=== PATIENT | male | born 1960 | race Caucasian/White ===

== ENCOUNTER 2018-07-18 16:32 | Emergency (ER) | payer SELFPAY ==
[2018-07-18 17:53] LABS: Bilirubin Negative (Negative); Blood, Urine Trace (Negative); Clarity CLEAR (Clear); Glucose, Urine (Dipstick) Negative (Negative); Leukocyte Negative (Negative); Nitrite Negative (Negative); Protein, Urine (Dipstick) Negative (Neg-Trace); Specific Gravity, Urine 1.017 (1.002-1.036)
[2018-07-18 17:55] LABS: Bacteria/HPF None Seen HPF (None Seen); Hyaline Casts/LPF 0-3 HYALINE CAST LPF (0-3 Hyaline); Squamous Epithelial None Seen HPF (0-3); WBC/HPF 0-3 HPF (0-3)
[2018-07-18 18:18] LABS: #Eosinphils 0.1 thou/uL (0.0-0.7); #Monocytes 1.1 thou/uL (0.11-0.59); #Neutrophils 6.7 thou/uL (1.40-6.50); %Eosinophils 0.6 % (0.0-10.0); %Lymphocytes 11.5 % (21.0-51.0); %Monocytes 12.6 % (0.0-10.0); %Neutrophils 75.2 % (42.0-75.0); Hemoglobin 15.4 g/dL (14.0-18.0); Mean Corpuscular HGB CONC 32.6 g/dL (32.0-36.0); Mean Corpuscular Hemoglobin 30.8 pg (27.0-31.0); Mean Corpuscular Volume 94.7 fL (78.0-98.0); Mean Platelet Volume 6.7 fL (7.4-10.4); Platelet Count 273 thou/uL (130-400); RBC Distribution Width 11.5 % (11.5-14.5); Red Blood Cell (RBC) Count 4.99 mill/uL (4.70-6.10); White Blood Cell (WBC) Count 8.9 thou/uL (4.8-10.8)
[2018-07-18 18:45] LABS: ALT (SGPT) 14 U/L (8-55); AST (SGOT) 18 U/L (5-34); Alkaline Phosphatase 83 U/L (40-150); Anion Gap 10 mmol/L (10-20); BUN (Urea Nitrogen) 14 mg/dL (8.4-25.7); Bilirubin, Total 0.6 mg/dL (0.2-1.2); Calc. Creatinine Clearance 0 mL/min (70-130); Calcium 8.6 mg/dL (7.8-10.44); Carbon Dioxide 28 mmol/L (22-29); Chloride 106 mmol/L (98-107); Estimated GFR-MDRD 86; Glucose 90 mg/dL (70-105); Lipase 10 U/L (8-78); Potassium 3.4 mmol/L (3.5-5.1); Sodium 141 mmol/L (136-145)
[2018-07-18] MEDS ORDERED: Ondansetron PF 4 MG/2 ML Vial ONE (19:37)
[2018-07-18] MEDS ORDERED: Acetaminophen 500 MG TAB ONE (19:37)
[2018-07-18] MEDS ORDERED: diphenhydrAMINE 50 MG/ML VIAL ONE (19:37)
[2018-07-18] MEDS ORDERED: Metoclopramide HCl 10 MG/2 ML VIAL ONE (19:37)
== END 2018-07-18 20:49 | disposition home or self-care (01) ==
LOC: ERS 16:32
DX: R11.2 Nausea with vomiting, unspecified (principal); R19.7 Diarrhea, unspecified; R51 Headache; E27.40 Unspecified adrenocortical insufficiency; I10 Essential (primary) hypertension; Z79.899 Other long term (current) drug therapy
CPT/HCPCS: 36415; 80053; 81003; 81015; 82533; 83690; 84484; 85025; 93005; 96365; 96375; J1200; J2405; J2765

== ENCOUNTER 2020-09-14 11:02 | Observation (INO) | payer SELFPAY ==
[2020-09-14] MEDS ORDERED: Proparacaine 0.5% Opth 15 ML BOT ONE (12:32)
--- NOTE | 2020-09-14 13:06 | RAD ---
Exam: Chest one view HISTORY:Facial droop. Numbness. Comparison: 09/03/2015 FINDINGS: Cardiac silhouette: Normal Aorta: Unremarkable Pulmonary vessels: Normal Costophrenic angles: Clear LUNGS: No masses or consolidation. Pneumothorax: None Osseous abnormalities: None IMPRESSION: No acute cardiopulmonary process.
--- NOTE | 2020-09-14 13:12 | CT ---
CT head without IV contrast: Multiple axial tomograms obtained through the head without IV enhancement. INDICATIONS: Facial droop COMPARISON: 09/03/2015 FINDINGS: Ventricles have normal size and position. Evidence of old lacunar infarct in the right thalamus, new since prior exam. No evidence of acute cortical infarct, mass, or hemorrhage. Mild chronic ischemic white matter change. Opacification the visualized left maxillary sinus with thickened sinus wall suggesting chronic sinus disease. Bony calvarium appears unremarkable. IMPRESSION: 1. Old lacunar infarct right thalamus. Mild chronic ischemic white matter change. 2. Chronic mucosal disease left maxillary sinus
[2020-09-14 13:19] LABS: #Monocytes 0.8 thou/uL (0.11-0.59); #Neutrophils 5.9 thou/uL (1.40-6.50); %Basophils 0.3 % (0.0-1.0); %Eosinophils 0.4 % (0.0-10.0); %Lymphocytes 23.1 % (21.0-51.0); %Monocytes 9.4 % (0.0-10.0); %Neutrophils 66.8 % (42.0-75.0); Hemoglobin 16.3 g/dL (14.0-18.0); Mean Corpuscular HGB CONC 32.8 g/dL (32.0-36.0); Mean Corpuscular Hemoglobin 31.4 pg (27.0-31.0); Mean Corpuscular Volume 95.7 fL (78.0-98.0); Mean Platelet Volume 6.9 fL (7.4-10.4); Platelet Count 308 thou/uL (130-400); RBC Distribution Width 11.6 % (11.5-14.5); White Blood Cell (WBC) Count 8.8 thou/uL (4.8-10.8)
[2020-09-14 13:27] LABS: ALT (SGPT) 17 U/L (8-55); AST (SGOT) 14 U/L (5-34); Albumin 4.6 g/dL (3.5-5.0); Alkaline Phosphatase 98 U/L (40-110); Anion Gap 14 mmol/L (10-20); BUN (Urea Nitrogen) 13 mg/dL (8.4-25.7); Bilirubin, Total 0.5 mg/dL (0.2-1.2); CK (CPK) 57 U/L (30-200); Calc. Creatinine Clearance 0 mL/min (70-130); Calcium 9.9 mg/dL (7.8-10.44); Carbon Dioxide 27 mmol/L (22-29); Chloride 105 mmol/L (98-107); Globulin 3.3 g/dL (2.4-3.5); Glucose 136 mg/dL (70-105); Magnesium 2.1 mg/dL (1.6-2.6); Potassium 4.8 mmol/L (3.5-5.1); Protein, Total 7.9 g/dL (6.0-8.3); Sodium 141 mmol/L (136-145)
[2020-09-14] MEDS ORDERED: Acetaminophen 500 MG TAB ONE (13:43)
--- NOTE | 2020-09-14 14:18 | PDOC.HHP ---
Hospitalist HPI Facial droop History of Present Illness: Ms. Alexander is a 60M with a PMHx of HTN, HLD, Middletown's disease, diverticulosis who presents to the ER sent in from customs compliance specialist Dr. Pan's office for facial droop. Patient reports that over the past six months he has noticed intermittent L sided eye droop and swelling/pain surrounding his eye for the past 6 months which has been progressive. Patient has noticed a clouding of his vision on the left side which would come and go, but now is persisting over the past few weeks mostly in the lower nasal quadrant of vision. Patient does note a history of increased eye swelling which he had years ago, but does not recall ever having glaucoma. He was put on eye drops for this for a short time years ago. He does note intermittent palpitations, which he had previously attributed to his Middletown's disease. He denies any weakness or numbness of the extremities. He reports L sided hearing loss and tinnitus which he noticed after an upper respiratory infection and fever months ago. He said he has avoided doctors in the past few months since he has no health insurance, although has been compliant with his Middletown's disease and following with his technical agronomist closely. In the ER initial vital signs 147/96, 71, 17, 98.2, 90% on room air. CT brain showed an old lacunar infarct in the right thalamus but no acute changes. BUN/CR 13/1.01, sodium 141, potassium 4.8. WBC 8.8, H/H 16.3/49.7, platelets regular. Glucose 136. TSH within normal limits cortisol within normal limits, magnesium 2.1. IOP in ER was measured 27 in the R eye and 24 in the L eye. Allergies/Adverse Reactions: Allergy/AdvReac Type Severity Reaction Status Date / Time No Known Drug Allergies Allergy Verified 09/03/15 00:33 Home Medications: Medication Instructions Recorded Confirmed Type traMADol HCl [Tramadol HCl] 2 tab PO BID PRN 09/03/15 09/15/20 History Aspirin [Ecotrin Low Strength] 81 mg PO DAILY 30 Days #30 tab 09/15/20 Rx Atorvastatin Calcium [Lipitor] 40 mg PO HS 30 Days #30 tab 09/15/20 Rx Brimonidine Tartrate/Timolol 5 ml OP QAM 30 Days #1 drops 09/15/20 Rx [Combigan 0.2%-0.5% Eye Drops] Fludrocortisone Acetate [Florinef] 0.1 mg PO DAILY tab 09/15/20 Rx Latanoprost [Xalatan 0.005% Ophth 1 drop EA EYE HS 30 Days #1 bot 09/15/20 Rx Soln] Metoprolol Tartrate [Lopressor] 25 mg PO BID tab 09/15/20 Rx Ondansetron [Zofran ODT] 4 mg PO PRN PRN tab 09/15/20 Rx predniSONE 5 mg PO HS tab 09/15/20 Rx predniSONE 10 mg PO DAILY tab 09/15/20 Rx Past History: PMHx: Middletown's disease, HTN, diverticulosis PSHx:L hand surgery, Knee surgery Family history: No pertinent family history Social history: Denies tobacco, eoth, drug use Hospitalist HPI ROS Constitutional: denies: fever, chills, sweats, weakness, malaise, other Eyes: reports: pain, vision change. denies: conjunctivae inflammation, eyelid inflammation, redness, other ENT: denies: ear pain, ear discharge, nose pain, nose discharge, nose congestion, mouth pain, mouth swelling, throat pain, throat swelling, other Respiratory: denies: cough, dry, shortness of breath, hemoptysis, SOB with excertion, pleuritic pain, sputum, wheezing, other Cardiovascular: reports: palpitations. denies: chest pain, orthopnea, paroxysmal noc. dyspnea, edema, light headedness, other Gastrointestinal: denies: nausea, vomiting, abdominal pain, diarrhea, constipation, melena, hematochezia, other Genitourinary: denies: dysuria, frequency, incontinence, hematuria, retention, other Musculoskeletal: denies: neck pain, shoulder pain, arm pain, back pain, hand pain, leg pain, foot pain, other Skin: denies: rash, lesions, kaitlynn, bruising, other Neurological: denies: weakness, numbness, incoordination, change in speech, con fusion, seizures, other Hospitalist Exam General Appearance: NAD, awake alert Eye: PERRL, anicteric sclera Eye - other findings: L eyelid ptosis, no conjunctivitis, EOM intact ENT: normocephalic atraumatic, no oropharyngeal lesions, moist mucosa Neck: supple, symmetric, no JVD, no thyromegaly, no lymphadenopathy, no carotid bruit Heart: RRR, no murmur, no gallops, no rubs, normal peripheral pulses Respiratory: CTAB, no wheezes, no rales, no ronchi, normal chest expansion, no tachypnea, normal percussion Gastrointestinal: soft, non-tender, non-distended, normal bowel sounds, no p alpable masses, no hepatomegaly, no splenomegaly, no bruit Extremities: no cyanosis, no clubbing, 1+ LE edema Extremities - other findings: L>R chronic 2/2 Knee surgery Skin: normal turgor, no lesions, no rashes Neurological: cranial nerve grossly intact, normal sensation to touch, no weakness, no focal deficits, no new deficit Neurological - other findings: L eyelid ptosis Musculoskeletal: normal tone, normal strength, no muscle wasting Psychiatric: normal affect, normal behavior, A&O x 3 Hospitalist Results Result Diagrams: 09/15/20 06:44 09/15/20 06:44 Lab results: Laboratory Last Values WBC 8.8 thou/uL (4.8-10.8) 09/14/20 12:39 RBC 5.20 mill/uL (4.70-6.10) 09/14/20 12:39 Hgb 16.3 g/dL (14.0-18.0) 09/14/20 12:39 Hct 49.7 % (42.0-52.0) 09/14/20 12:39 MCV 95.7 fL (78.0-98.0) 09/14/20 12:39 MCH 31.4 pg (27.0-31.0) H 09/14/20 12:39 MCHC 32.8 g/dL (32.0-36.0) 09/14/20 12:39 RDW 11.6 % (11.5-14.5) 09/14/20 12:39 Plt Count 308 thou/uL (130-400) 09/14/20 12:39 MPV 6.9 fL (7.4-10.4) L 09/14/20 12:39 Neutrophils % 66.8 % (42.0-75.0) 09/14/20 12:39 Lymphocytes % 23.1 % (21.0-51.0) 09/14/20 12:39 Monocytes % 9.4 % (0.0-10.0) 09/14/20 12:39 Eosinophils % 0.4 % (0.0-10.0) 09/14/20 12:39 Basophils % 0.3 % (0.0-1.0) 09/14/20 12:39 Neutrophils # 5.9 thou/uL (1.40-6.50) 09/14/20 12:39 Lymphocytes # 2.0 thou/uL (1.20-3.40) 09/14/20 12:39 Monocytes # 0.8 thou/uL (0.11-0.59) H 09/14/20 12:39 Eosinophils # 0.0 thou/uL (0.0-0.7) 09/14/20 12:39 Basophils # 0.0 thou/uL (0.0-0.2) 09/14/20 12:39 Sodium 141 mmol/L (136-145) 09/14/20 12:39 Potassium 4.8 mmol/L (3.5-5.1) 09/14/20 12:39 Chloride 105 mmol/L (98-107) 09/14/20 12:39 Carbon Dioxide 27 mmol/L (22-29) 09/14/20 12:39 Anion Gap 14 mmol/L (10-20) 09/14/20 12:39 BUN 13 mg/dL (8.4-25.7) 09/14/20 12:39 Creatinine 1.01 mg/dL (0.7-1.3) 09/14/20 12:39 Estimated GFR (MDRD) 76 09/14/20 12:39 Glucose 136 mg/dL (70-105) H 09/14/20 12:39 Calcium 9.9 mg/dL (7.8-10.44) 09/14/20 12:39 Magnesium 2.1 mg/dL (1.6-2.6) 09/14/20 12:39 Total Bilirubin 0.5 mg/dL (0.2-1.2) 09/14/20 12:39 AST 14 U/L (5-34) 09/14/20 12:39 ALT 17 U/L (8-55) 09/14/20 12:39 Alkaline Phosphatase 98 U/L (40-110) 09/14/20 12:39 Creatine Kinase 57 U/L (30-200) 09/14/20 12:39 Troponin I 0.013 ng/mL (< 0.028) 09/14/20 12:39 Serum Total Protein 7.9 g/dL (6.0-8.3) 09/14/20 12:39 Albumin 4.6 g/dL (3.5-5.0) 09/14/20 12:39 Globulin 3.3 g/dL (2.4-3.5) 09/14/20 12:39 Albumin/Globulin Ratio 1.4 g/dL (1.2-2.2) 09/14/20 12:39 TSH 3rd Generation 0.3520 uIU/mL (0.35-4.94) 09/14/20 12:39 Cortisol 1.20 ug/dL (See Ranges) 09/14/20 12:39 Hospitalist H&P A/P Plan: TIA with Vision Loss 60M with hx of hal's disease presents with acute on chronic vision loss. Pt describes intermittent black clouding of vision over the L eye in the lower na scooby quadrant which began 6 months ago. He noted an associated headache, numbness, and swelling surrounding his eye and extending to his gnosticist. The vision loss has been gradual and now is persistent over the past few weeks. Also noted hearing loss on the L side. CT brain showed an old lacunar infarct in the R thalamus with no acute changes. Question if this is untreated Temporal Arteritis vs amaurosis fugax. Will trial dose of IV solumedrol and check CRP, ESR. Pt also reports a history of elevated IOP years ago. Denies any history of glaucoma. IOP 27 on the R, very mildly elevated. EOM intact. No conjunctival injection. Will consult Dr. Denny of opthalmology for further recommendations. Plan -MRI brain, Carotid US -TSH, Mg, Telemetry monitoring -ESR, CRP, solumedrol if elevated -Neurology consult, reccs appreciated -Opthalomogy consult, reccs appreciated Eyelid droop Pt with intermittent L sided eyelid droop associated with vision loss and symptoms as above. Symptoms intermittent and progressive over the past few months. CT brain showed old lacunar infarct of the R thalamus. No other focal deficits noted on exam. Pt does not note a time association with his eyelid droop depending on time of day. No family history of myasthenia gravis. Will pursue CVA workup. Plan -MRI brain -q4hr neuro checks -Echocardiogram -Carotid US -ASA, statin -Neurology consult Palpitations Pt reports history of intermittent palpitations. He previously associated these with his hal's disease. Reports they will occur every few weeks and he feels that his heart is beating out of his chest when he stands up from sitting, only lasts for minutes at a time. No chest pain associated with these events. EKG showed NSR with no ischemic changes. May be component of POTS/dysautonomia, however will place on telemetry monitoring to rule out a-fib as a cause of his stroke-like symptoms. Plan -Telemetry monitoring [place]'s Disease Hx of Hal's disease diagnosed in 2016. On daily prednisone 10 mg BID and fludricotrisone. Will continue and add methypredisone as above for suspected temporal arteritis. Plan -Continue home prednisone, fludricortisone -Cortisol, TSH wnl HTN Hold home metoprolol in setting of permissive HTN HLD On fish oil at home. Will start atorvastatin for suspected TIA. DVT prophylaxis- lovenox FULL CODE Case discussed with attending physician, Dr. Anguiano
[2020-09-14] MEDS ORDERED: hydrALAZINE 20 MG/ML VIAL SLOW IVP PRN (15:38)
[2020-09-14] MEDS ORDERED: Acetaminophen 650 MG Suppository PR PRN (15:38)
[2020-09-14 17:15] LABS: Syphilis Antibody Nonreactive (Nonreactive); Syphilis Antibody Index 0.13 S/CO (<1.00 Non-Reactive)
--- NOTE | 2020-09-14 17:54 | CON ---
NEUROLOGY CONSULTATION DATE OF CONSULTATION: 09/14/2020 REASON FOR CONSULTATION: facial droop, rule out CVA. HISTORY OF PRESENT ILLNESS: Mr. Alexander is a 60-year-old male with medical history significant for hypertension, hyperlipidemia, Kleberg disease, diverticulosis, presented to the emergency room after being sent by police inspector, Dr. Pan because of left facial droop. The patient over the past 6 months he has noticed intermittent left ptosis and swelling and pain around the left eye, which has been progressive. He also noticed his vision is blurred and it feels like a cloud in front of his left eye, which comes and goes since last 6 months, but it has been persistent for the last one week, mostly in the left lower quadrant. The patient also has history of eye swelling and uses the drops previously for glaucoma. The patient does admit of having a left-sided headache and left hearing loss and tinnitus after an upper respiratory tract infection and fever a month ago. The patient used to avoid doctors because of issues with health insurance. He also had dizziness followed by skip load driver and is on prednisone. In the emergency room, the initial vital signs include blood pressure of 127/96, pulse 88, respiratory rate 17. Head CT was done, which showed old lacunar infarct in the right thalamus, but no acute changes. The patient denies nausea, vomiting, chest pain, abdominal pain, recent illness, recent exposure to COVID-19, focal weakness, focal paresthesias, double vision, dizziness, vertigo, loss of consciousness, or abnormal involuntary movement associated with the episode. ALLERGIES: NO KNOWN DRUG ALLERGIES. MEDICATIONS: 1. Tramadol. 2. Metoprolol tartrate. 3. Prednisone. PAST MEDICAL HISTORY: Hal disease, hypertension, diverticulosis. PAST SURGICAL HISTORY: Left hand surgery, knee surgery. FAMILY HISTORY: No pertinent family history. SOCIAL HISTORY: The patient is . Denies tobacco, alcohol, illegal drug abuse. REVIEW OF SYSTEMS: All systems reviewed and were negative except the pertinent positives and negatives mentioned in the HPI. Allergies/Adverse Reactions: Allergy/AdvReac Type Severity Reaction Status Date / Time No Known Drug Allergies Allergy Verified 09/03/15 00:33 Home Medications: Medication Instructions Recorded Confirmed Type traMADol HCl [Tramadol HCl] 1 - 2 tab PO BID PRN 09/03/15 09/03/15 History Metoprolol Tartrate 0.5 tab PO BID 09/14/20 09/14/20 History predniSONE 10 mg PO BID 09/14/20 09/14/20 History PHYSICAL EXAMINATION: Blood pressure of 127/96, pulse 88, respiratory rate 17 General Appearance: NAD, awake alert Eye: PERRL, anicteric sclera Eye - other findings: L eyelid ptosis, no conjunctivitis, EOM intact ENT: normocephalic atraumatic, no oropharyngeal lesions, moist mucosa Neck: supple, symmetric, no JVD, no thyromegaly, no lymphadenopathy, no carotid bruit Heart: RRR, no murmur, no gallops, no rubs, normal peripheral pulses Respiratory: CTAB, no wheezes, no rales, no ronchi, normal chest expansion, no tachypnea, normal percussion Gastrointestinal: soft, non-tender, non-distended, normal bowel sounds, no palpable masses, no hepatomegaly, no splenomegaly, no bruit Extremities: no cyanosis, no clubbing, 1+ LE edema Skin: normal turgor, no lesions, no rashes Neurological: Mental status: The patient is alert and oriented to person, place, and time. Speech is clear. Cranial nerves 2 through 12 intact. Motor, muscle tone and bulk are normal. Strength 5/5 bilaterally. Sensory intact. Cerebellar, finger-nose testing intact. Gait deferred due to patient's safety reason. The only pertinent positive in neurological exam is left eyelid ptosis. DATA REVIEWED: I reviewed the CT scan which was negative for acute intracranial pathology. He does have hyperglycemia of 136. Laboratory Last Values WBC 8.8 thou/uL (4.8-10.8) 09/14/20 12:39 RBC 5.20 mill/uL (4.70-6.10) 09/14/20 12:39 Hgb 16.3 g/dL (14.0-18.0) 09/14/20 12:39 Hct 49.7 % (42.0-52.0) 09/14/20 12:39 MCV 95.7 fL (78.0-98.0) 09/14/20 12:39 MCH 31.4 pg (27.0-31.0) H 09/14/20 12:39 MCHC 32.8 g/dL (32.0-36.0) 09/14/20 12:39 RDW 11.6 % (11.5-14.5) 09/14/20 12:39 Plt Count 308 thou/uL (130-400) 09/14/20 12:39 MPV 6.9 fL (7.4-10.4) L 09/14/20 12:39 Neutrophils % 66.8 % (42.0-75.0) 09/14/20 12:39 Lymphocytes % 23.1 % (21.0-51.0) 09/14/20 12:39 Monocytes % 9.4 % (0.0-10.0) 09/14/20 12:39 Eosinophils % 0.4 % (0.0-10.0) 09/14/20 12:39 Basophils % 0.3 % (0.0-1.0) 09/14/20 12:39 Neutrophils # 5.9 thou/uL (1.40-6.50) 09/14/20 12:39 Lymphocytes # 2.0 thou/uL (1.20-3.40) 09/14/20 12:39 Monocytes # 0.8 thou/uL (0.11-0.59) H 09/14/20 12:39 Eosinophils # 0.0 thou/uL (0.0-0.7) 09/14/20 12:39 Basophils # 0.0 thou/uL (0.0-0.2) 09/14/20 12:39 Sodium 141 mmol/L (136-145) 09/14/20 12:39 Potassium 4.8 mmol/L (3.5-5.1) 09/14/20 12:39 Chloride 105 mmol/L (98-107) 09/14/20 12:39 Carbon Dioxide 27 mmol/L (22-29) 09/14/20 12:39 Anion Gap 14 mmol/L (10-20) 09/14/20 12:39 BUN 13 mg/dL (8.4-25.7) 09/14/20 12:39 Creatinine 1.01 mg/dL (0.7-1.3) 09/14/20 12:39 Estimated GFR (MDRD) 76 09/14/20 12:39 Glucose 136 mg/dL (70-105) H 09/14/20 12:39 Calcium 9.9 mg/dL (7.8-10.44) 09/14/20 12:39 Magnesium 2.1 mg/dL (1.6-2.6) 09/14/20 12:39 Total Bilirubin 0.5 mg/dL (0.2-1.2) 09/14/20 12:39 AST 14 U/L (5-34) 09/14/20 12:39 ALT 17 U/L (8-55) 09/14/20 12:39 Alkaline Phosphatase 98 U/L (40-110) 09/14/20 12:39 Creatine Kinase 57 U/L (30-200) 09/14/20 12:39 Troponin I 0.013 ng/mL (< 0.028) 09/14/20 12:39 Serum Total Protein 7.9 g/dL (6.0-8.3) 09/14/20 12:39 Albumin 4.6 g/dL (3.5-5.0) 09/14/20 12:39 Globulin 3.3 g/dL (2.4-3.5) 09/14/20 12:39 Albumin/Globulin Ratio 1.4 g/dL (1.2-2.2) 09/14/20 12:39 TSH 3rd Generation 0.3520 uIU/mL (0.35-4.94) 09/14/20 12:39 Cortisol 1.20 ug/dL (See Ranges) 09/14/20 12:39 ASSESSMENT AND PLAN: Mr. Alexander is a 60-year-old male with history significant for Kleberg disease, presented with acute on chronic vision loss. Per patient, there is intermittent change of vision. The patient describes as the left eye visual loss, which seems like an intermittent cloud, which is now persistent in the left lower quadrant. This is also associated with headache, numbness, and swelling around the eye, left eye ptosis and tenderness. There is also a concern about untreated temporal arteritis versus amaurosis fugax. Consider a trial of IV methylprednisolone 1 g to see if it improves the symptoms. We will also check his ESR and CRP and we will also continue with stroke workup including MRI of the brain, carotid Dopplers and 2D echocardiogram. Telemetry to rule out arrhythmias. Continue permissive control of blood pressure at this time. Strict control of blood glucose. Check hemoglobin A1c, fasting lipid panel, and TSH. Continue medical management per primary team. Ophthalmology consult. Start aspirin and high-intensity statin for secondary stroke prevention. PT/OT/speech. DVT prophylaxis. We will continue to follow. Thank you for the consult. Plan discussed in detail with the patient, is at bedside and also with the admitting attending. Job ID: [id number] [email or web address]
[2020-09-14] MEDS ORDERED: Acetaminophen 325 MG TAB ONE (18:30)
[2020-09-14] MEDS: Acetaminophen 325 MG TAB PO PRN (18:32)
[2020-09-14] MEDS ORDERED: methylPREDNISolone Sod Succ 40 MG VIAL IVP SCH (19:30)
[2020-09-14] MEDS ORDERED: Atorvastatin Calcium 40 MG TAB PO SCH (21:00)
--- NOTE | 2020-09-14 22:05 | ULT ---
BILATERAL CAROTID DUPLEX ULTRASOUND: HISTORY: Vision loss and TIA TECHNIQUE: Grayscale, color-flow and spectral Doppler ultrasound imaging of the extracranial carotid artery syst ems was performed bilaterally. FINDINGS: There is minimal plaque formation noted bilaterally. The peak systolic velocity in the right ICA measures 63 cm/s with an end-diastolic velocity of 25 cm/ s and a systolic ratio of 0.70. The peak systolic velocity in the left ICA measures 74 cm/s with an end-diastolic velocity of 29 cm/s and a systolic ratio of 0.81. Flow in both vertebral arteries remains antegrade. IMPRESSION: No evidence of hemodynamically significant stenosis in either ICA.
[2020-09-15] MEDS: Acetaminophen 325 MG TAB PO PRN ×2 (02:57→09:22)
[2020-09-15 03:10] LABS: SARS-CoV-2 PCR by NAA Not Detected (NotDetected)
[2020-09-15 06:52] LABS: #Lymphocytes 0.8 thou/uL (1.20-3.40); #Monocytes 0.3 thou/uL (0.11-0.59); #Neutrophils 9.5 thou/uL (1.40-6.50); %Basophils 0.3 % (0.0-1.0); %Lymphocytes 7.8 % (21.0-51.0); %Monocytes 2.7 % (0.0-10.0); %Neutrophils 89.2 % (42.0-75.0); Hemoglobin 17.2 g/dL (14.0-18.0); Mean Corpuscular HGB CONC 32.3 g/dL (32.0-36.0); Mean Corpuscular Hemoglobin 31.1 pg (27.0-31.0); Mean Corpuscular Volume 96.2 fL (78.0-98.0); Mean Platelet Volume 6.6 fL (7.4-10.4); Platelet Count 315 thou/uL (130-400); RBC Distribution Width 11.6 % (11.5-14.5); Red Blood Cell (RBC) Count 5.53 mill/uL (4.70-6.10); White Blood Cell (WBC) Count 10.7 thou/uL (4.8-10.8)
[2020-09-15 07:14] LABS: Anion Gap 15 mmol/L (10-20); BUN (Urea Nitrogen) 13 mg/dL (8.4-25.7); Calc. Creatinine Clearance 134 mL/min (70-130); Calcium 9.8 mg/dL (7.8-10.44); Carbon Dioxide 20 mmol/L (22-29); Cardiac Risk 4.9 (Less than 4.5); Chloride 107 mmol/L (98-107); Cholesterol 262 mg/dl (< 200 Desired); Glucose 155 mg/dL (70-105); HDL Cholesterol 54 mg/dL (>60 Neg Risk); LDL Cholesterol, Calculated 182 mg/dL; Potassium 4.4 mmol/L (3.5-5.1); Sodium 138 mmol/L (136-145); Triglycerides 131 mg/dL (Less than 150)
[2020-09-15] MEDS ORDERED: Enoxaparin Sodium 40 MG/0.4 ML SYRINGE SC SCH (09:00)
[2020-09-15] MEDS ORDERED: Aspirin 81 mg Enteric Coated Tablet PO SCH (09:00)
--- NOTE | 2020-09-15 09:15 | MRI ---
EXAM: MRI of the brain without contrast HISTORY: Facial drooping COMPARISON: CT brain 09/14/2020 TECHNIQUE: Multiplanar multisequence MR images were obtained of the brain without IV contrast. FINDINGS: Scattered foci of high T2/FLAIR signal in the subcortical and periventricular white matter are likely secondary to small vessel ischemic disease. No restricted diffusion. No hydronephrosis. No extra-axial fluid collection or intracranial hemorrhage. The expected flow voids are present. Corpus callosum, pituitary, and craniocervical junction are within normal limits. The calvarium and overlying soft tissues are unremarkable. There is opacification of the left maxillary sinus. The other paranasal sinuses are well aerated. IMPRESSION: No evidence of acute intracranial abnormality.
[2020-09-15] MEDS ORDERED: methylPREDNISolone Sod Succ 40 MG VIAL IVP SCH (10:30)
[2020-09-15] MEDS ORDERED: Ondansetron ODT 4 MG TAB PO PRN (10:40)
[2020-09-15] MEDS ORDERED: traMADol HCl 50 MG TAB PO PRN (10:40)
[2020-09-15] MEDS ORDERED: Aspirin 81 mg Enteric Coated Tablet ONE (12:51)
[2020-09-15 13:05] VITALS: BP 140/84; TEMP 98.4
--- NOTE | 2020-09-15 13:28 | PDOC.NEUPN ---
- Subjective Encounter Date: 09/15/20 Subjective: No acute events in the last 24 hours. - Objective Vital Signs & Weight: Vital Signs (12 hours) Temp Pulse Resp BP Pulse Ox 09/15/20 12:00 98.4 F 92 17 140/84 09/15/20 03:05 98.2 F 76 14 109/65 96 Weight Weight 209 lb 11.2 oz I&O: 09/14/20 09/15/20 09/16/20 06:59 06:59 06:59 Intake Total 1013 Balance 1013 Result Diagrams: 09/15/20 06:44 09/15/20 06:44 Radiology Reviewed by me: Yes EKG Reviewed by me: Yes ROS - Review of Systems Constitutional: denies: fever, chills, sweats, weakness, malaise, other Eyes: reports: pain, vision change, eyelid inflammation, redness ENT: denies: ear pain, ear discharge, nose pain, nose discharge, nose congestion, mouth pain, mouth swelling, throat pain, throat swelling, other Respiratory: denies: cough, dry, shortness of breath, hemoptysis, SOB with excertion, pleuritic pain, sputum, wheezing, other Gastrointestinal: denies: nausea, vomiting, abdominal pain, diarrhea, constipation, melena, hematochezia, other Neurological: denies: weakness, numbness, incoordination, change in speech, confusion, seizures, other - Medication Medications: Active Medications Generic Name Dose Route Start Last Admin Trade Name Freq PRN Reason Stop Dose Admin Acetaminophen 650 mg 09/14/20 15:38 09/15/20 09:22 Acetaminophen 325 Mg Tab PO 650 mg Q4H PRN Administration Headache/Fever/Mild Pain (1-3) Aspirin 81 mg 09/15/20 09:00 09/15/20 13:07 Aspirin 81 Mg Enteric Coated Tablet PO Not Given DAILY ANA Atorvastatin Calcium 40 mg 09/14/20 21:00 09/14/20 21:56 Atorvastatin Calcium 40 Mg Tab PO 40 mg HS ANA Administration Enoxaparin Sodium 40 mg 09/15/20 09:00 09/15/20 09:23 Enoxaparin Sodium 40 Mg/0.4 Ml Syringe SC Not Given 0900 ANA Sodium Chloride 10 ml 09/14/20 15:38 09/14/20 22:08 Flush - Normal Saline 10 Ml Syringe IVF 10 ml PRN PRN Administration Saline Flush - Exam General Appearance: awake alert Eye: PERRL ENT: normocephalic atraumatic Neck: supple Respiratory: CTAB Cardiovascular: RRR Gastrointestinal: soft Extremities: no cyanosis Skin: normal turgor Neurological: CN's grossly intact, normal sensation to touch, no weakness, no focal deficits, no new deficit Musculoskeletal: normal tone, normal strength, no muscle wasting PSYCH: normal affect, normal behavior, A&O x 3, oriented to person, oriented to place, oriented to time Results - Labs Result Diagrams: 09/15/20 06:44 09/15/20 06:44 Lab results: WBC 10.7 thou/uL (4.8-10.8) 09/15/20 06:44 Hgb 17.2 g/dL (14.0-18.0) 09/15/20 06:44 Hct 53.2 % (42.0-52.0) H 09/15/20 06:44 MCV 96.2 fL (78.0-98.0) 09/15/20 06:44 Plt Count 315 thou/uL (130-400) 09/15/20 06:44 Neutrophils % 89.2 % (42.0-75.0) H 09/15/20 06:44 ESR Westergren 20 mm/hr (Less than 20) H 09/14/20 16:20 Sodium 138 mmol/L (136-145) 09/15/20 06:44 Potassium 4.4 mmol/L (3.5-5.1) 09/15/20 06:44 Chloride 107 mmol/L (98-107) 09/15/20 06:44 Carbon Dioxide 20 mmol/L (22-29) L 09/15/20 06:44 BUN 13 mg/dL (8.4-25.7) 09/15/20 06:44 Creatinine 0.80 mg/dL (0.7-1.3) 09/15/20 06:44 Glucose 155 mg/dL (70-105) H 09/15/20 06:44 Calcium 9.8 mg/dL (7.8-10.44) 09/15/20 06:44 Total Bilirubin 0.5 mg/dL (0.2-1.2) 09/14/20 12:39 AST 14 U/L (5-34) 09/14/20 12:39 ALT 17 U/L (8-55) 09/14/20 12:39 Alkaline Phosphatase 98 U/L (40-110) 09/14/20 12:39 Creatine Kinase 57 U/L (30-200) 09/14/20 12:39 Troponin I 0.013 ng/mL (< 0.028) 09/14/20 12:39 C-Reactive Protein 0.54 mg/dL (= or < 0.5) H 09/14/20 16:20 Serum Total Protein 7.9 g/dL (6.0-8.3) 09/14/20 12:39 Albumin 4.6 g/dL (3.5-5.0) 09/14/20 12:39 - Radiology Interpretation MRI - head Additional Comment: MRI of the brain was negative for acute intracranial pathology PN A/P (1) Vision loss Code(s): H54.7 - UNSPECIFIED VISUAL LOSS Status: Acute (2) Glaucoma Code(s): H40.9 - UNSPECIFIED GLAUCOMA Status: Acute (3) Adrenal insufficiency Code(s): E27.40 - UNSPECIFIED ADRENOCORTICAL INSUFFICIENCY Status: Acute (4) Dyslipidemia Code(s): E78.5 - HYPERLIPIDEMIA, UNSPECIFIED Status: Chronic - Plan a 60-year-old male with medical history significant for [place]end[place]'s disease presented with progressive vision loss and facial droop which resolved when patient arrived to the emergency room. MRI of the brain reviewed which was negative for acute intracranial pathology. Carotid Dopplers did not reveal hemodynamically significant stenosis Telemetry to rule out arrhythmias Continue aspirin and high intensity statin for secondary stroke prevention. 2 D echocardiography to evaluate for left ventricular ejection fraction is pending at this time Patient has been seen by ophthalmology and most likely vision loss is secondary to increased intraocular blood pressureglaucoma. Patient to be followed by ophthalmology as outpatient for management of gl aucoma. Neurochecks every 4 hours. Continue home medications. Continue medical management per primary team
--- NOTE | 2020-09-15 17:37 | PDOC.DS.DS ---
Provider Date of Admission: 09/14/20 14:55 Date of Discharge: 09/15/20 Admitting Provider: Joe Anguiano MD Consultations: Neurology, Other (Opthalmology) Primary Care Physician: Fatou Rosario MD Course Hospital Course: HISTORY OF PRESENT ILLNESS ON PRESENTATION Mr. Alexander is a 60M with a PMHx of HTN, HLD, Gentry's disease, diverticulosis who presents to the ER sent in from charge master specialist Dr. Pan's office for facial droop. Patient reports that over the past six months he has noticed intermittent L sided eye droop and swelling/pain surrounding his eye for the past 6 months which has been progressive. Patient has noticed a clouding of his vision on the left side which would come and go, but now is persisting over the past few weeks mostly in the lower nasal quadrant of vision. Patient does note a history of increased eye swelling which he had years ago, but does not recall ever having g laucoma. He was put on eye drops for this for a short time years ago. 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 He denies any weakness or numbness of the extremities. He reports L sided hearing loss and tinnitus which he noticed after an upper respiratory infection and fever months ago. He said he has avoided doctors in the past few months since he has no health insurance, although has been compliant with his Gentry's disease and following with his cisco engineer closely. In the ER initial vital signs 147/96, 71, 17, 98.2, 90% on room air. CT brain showed an old lacunar infarct in the right thalamus but no acute changes. BUN/ CR 13/1.01, sodium 141, potassium 4.8. WBC 8.8, H/H 16.3/49.7, platelets regular. Glucose 136. TSH within normal limits cortisol within normal limits, magnesium 2.1. IOP in ER was measured 27 in the R eye and 24 in the L eye. BRIEF HOSPITAL COURSE Mr. Alexander is a 60-year-old past medical history of hypertension, hyperlipidemia, Gentry's disease, diverticulosis who was initially sent in from charge master specialist Dr. Lopez's office for facial droop. Patient also noted that he has had over the past 6 months acute on chronic worsening of left vision loss. This is associated with left eye pain and headache. CT brain showed old lacunar infarct but no acute changes. Patient was found to have glaucoma and was evaluated by eligibility counselor, Dr. Delacruz who has started eyedrops. Patient underwent a thorough work-up and was initially trialed on short course of steroids for initial concern of temporal arteritis, however CRP and ESR were only very slightly elevated. Echocardiogram showed no abnormal findings with a normal ejection fraction. Carotid Dopplers had no signs of significant stenosis. Retinal examination showed evidence of glaucoma and no concern for vascular pathology. MRI of the brain was also done which is negative. Patient was followed by neurology who felt patient was safe for discharge home. Patient was started on aspirin and atorvastatin given lacunar infarct on CT scan. He was monitored on telemetry and had no abnormal readings. EKG was normal as well. Patient's symptoms were felt to be caused from glaucoma and patient was discharged home on plan to Prost and Combigan eyedrops. Patient will need to follow-up with eligibility counselor in the next week as well as his primary care provider in the next 2 weeks to follow-up and continue to modify his stroke risk factors. Case discussed with attending physician, Dr. Anguiano who is in agreement for discharge home. Resuscitation Status: 09/14/20 15:38 Resuscitation Status Routine Co-Sign Provider: Resuscitation Status: FULL: Full Resuscitation Lab Results: 09/15/20 06:44 09/15/20 06:44 Abnormal Lab Results - Last 48 hrs 09/14/20 12:39: MCH 31.4 H, MPV 6.9 L, Monocytes # 0.8 H 09/14/20 16:20: C-Reactive Protein 0.54 H 09/14/20 16:20: ESR Westergren 20 H 09/15/20 06:44: Carbon Dioxide 20 L, Cholesterol 262 H 09/15/20 06:44: Hct 53.2 H, MCH 31.1 H, MPV 6.6 L, Neutrophils % 89.2 H, Lymphocytes % 7.8 L, Neutrophils # 9.5 H, Lymphocytes # 0.8 L Vitals: Vital Signs (12 hours) Temp Pulse Resp BP 09/15/20 12:00 98.4 F 92 17 140/84 Weight Weight 209 lb 11.2 oz Physical Exam: The patient was seen and examined on the day of discharge. NAD, AOx3 Normocephalic, atraumatic, PEERLA, LLQ visual field defect of L eye Neck supple, no JVD, no lymphadenopathy RRR, no murmurs, rubs, or gallops Lungs CTAB, no wheezes, no dyspnea or tachypnea Abdomen soft, non-tender with normoactive bowel sounds Skin warm with no rashes, normal turgor Extremities with no edema and intact peripheral pulses Normal tone and muscle strength No focal deficits, no weakness Problem Assessment: Glaucoma Visual loss caused by glaucoma. Pt will need to start Latanaprost Drops and Combigen drops which have been sent to his pharmacy Follow up with opthalmologist in 1-2 weeks CVA Pt with old lacunar infarct noted on CT scan. Carotid dopplers negative Echo wnl No evidence of arrhythmia on telemetry Patient will start on aspirin and atorvastatin which have been sent to his pharmacy. Gentry's Disease Hx of Gentry's disease diagnosed in 2016. Continue home prednisone, fludricortisone Cortisol, TSH wnl Follow up with cisco engineer HTN Continue home metoprolol. HLD Add atorvastatin 40 mg daily. This has been sent to his pharmacy. Case discussed with attending physician Dr. Anguiano and neurologist Dr. Laird who are both in agreement that patient is ready for discharge home. Plan Prescriptions: Brimonidine Tartrate/Timolol [Combigan 0.2%-0.5% Eye Drops] 5 ml OP QAM 30 Days #1 drops Aspirin [Ecotrin Low Strength] 81 mg PO DAILY 30 Days #30 tab Atorvastatin Calcium [Lipitor] 40 mg PO HS 30 Days #30 tab Latanoprost [Xalatan 0.005% Oph Soln] 1 drop EA EYE HS 30 Days #1 bot Home Medications: Medication Instructions Recorded Confirmed Type traMADol HCl [Tramadol HCl] 2 tab PO BID PRN 09/03/09/15/20 History Aspirin [Ecotrin Low Strength] 81 mg PO DAILY 30 Days #30 tab 09/15/20 Rx Atorvastatin Calcium [Lipitor] 40 mg PO HS 30 Days #30 tab 09/15/20 Rx Brimonidine Tartrate/Timolol 5 ml OP QAM 30 Days #1 drops 09/15/20 Rx [Combigan 0.2%-0.5% Eye Drops] Fludrocortisone Acetate [Florinef] 0.1 mg PO DAILY tab 09/15/20 Rx Latanoprost [Xalatan 0.005% Ophth 1 drop EA EYE HS 30 Days #1 bot 09/15/20 Rx Soln] Metoprolol Tartrate [Lopressor] 25 mg PO BID tab 09/15/20 Rx Ondansetron [Zofran ODT] 4 mg PO PRN PRN tab 09/15/20 Rx predniSONE 5 mg PO HS tab 09/15/20 Rx predniSONE 10 mg PO DAILY tab 09/15/20 Rx Allergies: No Known Drug Allergies Allergy (Verified 09/03/15 00:33) Activity:: Activity as Tolerated Nourishment:: Diabetic Diet, Heart Healthy Diet Referrals: Joe Denny MD [Active] - 10 Days Fatou Rosario MD [Primary Care Provider] - 14 Days Disposition: HOME Quality CORE MEASURES:: Stroke/TIA Did you prescribe antithrombotic therapy?: Yes Did you prescribe anticoagulant for A Fib/Flutter?: No Specify reason for no DC anticoagulant: Treatment not indicated Did you prescribe a statin medication?: Yes
[2020-09-15] MEDS ORDERED: Timolol 0.5% Ophth Soln 5 ml Bottle EA EYE SCH (21:00)
[2020-09-15] MEDS ORDERED: Brimonidine Tartrate 0.2% Ophth Soln 5 ml Bottle EA EYE SCH (21:00)
[2020-09-15] MEDS ORDERED: predniSONE 5 MG TAB PO SCH (21:00)
[2020-09-15] MEDS ORDERED: Latanoprost 0.005% Ophth Soln 2.5 ml Bottle EA EYE SCH (21:00)
[2020-09-15] MEDS ORDERED: Metoprolol Tartrate 25 MG TAB PO SCH (21:00)
--- NOTE | 2020-09-16 08:42 | CON ---
DATE OF CONSULTATION: 09/15/2020 TIME: 8:20 a.m. REASON FOR CONSULT: Blurred vision, left eye. HISTORY OF PRESENT ILLNESS: The patient is a 60-year-old man, with [place] disease, has been aware of loss of the inferonasal vision of his left eye beginning about 6 months previously. He had no particular plans to seek medical advice for this symptom until his applications manager said that his face was drooping or asymmetric and he might have had a stroke and sent him to the emergency room. 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 Approximately 5 years ago had a glaucoma screening at [facility]. The intraocular pressure was 28 mmHg right, and 46 mmHg left. He then ultimately went to Dr. Greg Velazco, who began him on latanoprost drops in the left eye and Cosopt drops in both eyes, which Dr. Velazco says produced an intraocular pressure of 18 mmHg right, and 19 mmHg left. However, his last visit there was in March of 2019. The patient states that he was using his drops regularly until his admission about 3 days previously. The hospitalist history and physical has been reviewed. On examination, visual acuity with his current glasses is J-3 (20/40 equivalent) for the right eye and variable 20/400-20/800 equivalent for the left eye. On confrontation visual field testing, the right field is full. The left eye field has a diagonal line going across the central vision from superonasal to inferotemporal with no vision below that and constricted field above that. Intraocular pressure with Mervin-Pen for the right eye was 31, 23, and 32 mmHg, and for the left eye 39, 38, and 41 mmHg for the left eye. His ocular motility is aligned and full. Pupils are about 4 mm, equal and reactive with a 3+ left relative afferent pupillary defect. On dilated fundus exam, the retina and retinal vessels are normal for both eyes. The right optic nerve has a cup/disk ratio of 0.8 horizontally and 0.6 vertically with a somewhat myopic configuration. The left eye has total cupping of the optic nerve. ASSESSMENT: 1. His ESR is 20 mm/hour and the CRP is 0.54, both are borderline elevated. The pattern of his visual loss, gradual over 6 months, is not typical of ischemia and I do not think he has temporal arteritis. 2. His initial untreated intraocular pressure and is probable poor compliance and the appearance of his left optic nerve would strongly suggest that this is advanced, end-stage glaucoma. PLAN: He needs much better and closer management. Job ID: [id number] [facility]
[2020-09-16] MEDS ORDERED: Fludrocortisone Acetate 0.1 MG TAB PO SCH (09:00)
[2020-09-16] MEDS ORDERED: predniSONE 5 MG TAB PO SCH (09:00)
[2020-09-17 15:49] LABS: ANA Symphony (Qualitative) Negative (Negative); ANA Symphony (Quantitative) 0.2 Ratio (< 0.7 Negative); dsDNA IgG Antibody 2.4 IU/mL (<10 Negative)
--- NOTE | 2020-09-18 16:49 | EKG ---
Test Reason : Blood Pressure : / mmHG Vent. Rate : 065 BPM Atrial Rate : 065 BPM P-R Int : 176 ms QRS Dur : 102 ms QT Int : 398 ms P-R-T Axes : 068 044 045 degrees QTc Int : 413 ms Normal sinus rhythm Normal ECG Confirmed by ARUNA VELASQUEZ M.D. ([id number]), metropolitan editor TALIA CARR ([id number]) on 09/18/2020 4:49:05 PM Referred By: Confirmed By:ARUNA VELASQUEZ M.D.
== END 2020-09-15 17:44 | disposition home or self-care (01) ==
LOC: ERS 11:02 → ERHOLD 14:55 → 3SE 19:29
PROVIDERS: ADMIT Internal Medicine; ATTEND Internal Medicine
DX: I63.9 Cerebral infarction, unspecified (principal); H40.9 Unspecified glaucoma; E27.1 Primary adrenocortical insufficiency; I10 Essential (primary) hypertension; E78.5 Hyperlipidemia, unspecified; J32.0 Chronic maxillary sinusitis; Z91.14 Patient's other noncompliance with medication regimen; Z79.52 Long term (current) use of systemic steroids; Z79.899 Other long term (current) drug therapy; Z20.822 Contact with and (suspected) exposure to COVID-19
CPT/HCPCS: 36415; 70450; 70551; 71045; 80048; 80053; 80061; 82533; 82550; 83735; 84443; 84484; 85025; 85652; 86038; 86140; 86225; 86780; 87635; 93005; 93306; 93880; 96374; 96376; G0378; J2920; U0003; U0005

== ENCOUNTER 2022-11-10 10:43 | Inpatient (IN) | payer SELFPAY ==
[2022-11-10] MEDS ORDERED: Iopamidol 370 76% 100 ML VIAL ONE (11:24)
[2022-11-10] MEDS ORDERED: Ondansetron PF 4 MG/2 ML Vial ONE (11:25)
[2022-11-10 11:42] LABS: #Lymphocytes 1.2 thou/uL (1.20-3.40); #Monocytes 0.7 thou/uL (0.11-0.59); #Neutrophils 12.2 thou/uL (1.40-6.50); %Basophils 0.3 % (0.0-1.0); %Eosinophils 0.1 % (0.0-10.0); %Lymphocytes 8.5 % (21.0-51.0); %Neutrophils 86.2 % (42.0-75.0); Hemoglobin 16.6 g/dL (14.0-18.0); Mean Corpuscular HGB CONC 34.8 g/dL (32.0-36.0); Mean Corpuscular Hemoglobin 32.5 pg (27.0-31.0); Mean Corpuscular Volume 93.6 fl (78.0-98.0); Mean Platelet Volume 6.6 fL (7.4-10.4); Platelet Count 210 10x3/uL (130-400); RBC Distribution Width 12.1 % (11.5-14.5); Red Blood Cell (RBC) Count 5.11 mill/uL (4.70-6.10); White Blood Cell (WBC) Count 14.2 10x3/uL (4.8-10.8)
[2022-11-10 12:05] LABS: ALT (SGPT) 23 U/L (8-55); AST (SGOT) 19 U/L (5-34); Albumin 4.4 g/dL (3.4-4.8); Alkaline Phosphatase 132 U/L (40-110); Anion Gap 15 mmol/L (10-20); BUN (Urea Nitrogen) 17 mg/dL (8.4-25.7); Bilirubin, Total 0.9 mg/dL (0.2-1.2); CK (CPK) 59 U/L (30-200); Calc. Creatinine Clearance 0 mL/min (70-130); Calcium 9.6 mg/dL (7.8-10.44); Carbon Dioxide 23 mmol/L (23-31); Chloride 102 mmol/L (98-107); Estimated GFR 79; Globulin 3.3 g/dL (2.4-3.5); Glucose 271 mg/dL (80-115); Lipase 19 U/L (8-78); Magnesium 1.9 mg/dL (1.6-2.6); Potassium 4.2 mmol/L (3.5-5.1); Protein, Total 7.7 g/dL (5.8-8.1); Sodium 136 mmol/L (136-145)
[2022-11-10 13:03] LABS: Bilirubin Negative (Negative); Blood, Urine Negative (Negative); Clarity Clear (Clear); Glucose, Urine (Dipstick) Greater than 1000 mg/dL (Negative); Ketone, Urine Negative (Negative); Leukocyte Negative Leu/uL (Negative); Nitrite Negative (Negative); Protein, Urine (Dipstick) Negative (Neg-Trace); Urobilinogen Normal mg/dL (Less than 2)
[2022-11-10] MEDS ORDERED: Cefepime 1 GM VIAL ONE ×2 (13:27→13:28)
[2022-11-10] MEDS ORDERED: Nitroglycerin 0.4 MG TAB (25 Tab Bottle) SL PRN (14:10)
[2022-11-10] MEDS ORDERED: Ondansetron ODT 4 MG TAB PO PRN (14:12)
[2022-11-10] MEDS ORDERED: Ondansetron PF 4 MG/2 ML Vial IVP PRN (14:12)
[2022-11-10] MEDS ORDERED: Senokot S 8.6-50 MG TAB PO PRN (14:12)
[2022-11-10] MEDS ORDERED: Calcium Carbonate 500 MG ChewTAB PO PRN (14:12)
[2022-11-10] MEDS ORDERED: Electrolyte Replacement Protocol 1 EACH FS SCH (14:15)
[2022-11-10] MEDS ORDERED: Dextrose 50% Abboject 50 ML SYRINGE SLOW IVP PRN (14:15)
[2022-11-10] MEDS ORDERED: Vancomycin 1 GM in Premix Bag 1 BAG IVPB SCH (14:15)
[2022-11-10] MEDS ORDERED: Insulin Regular 300 UNITS/3 ML VIAL SC PRN (14:15)
[2022-11-10] MEDS ORDERED: Dextrose 5% in Water 1,000 ML IV PRN (14:15)
[2022-11-10] MEDS ORDERED: Magnesium 2 GM/50 ML(in water) 2 GM in Premix Bag 1 BAG IVPB SCH (14:30)
[2022-11-10] MEDS ORDERED: Fludrocortisone Acetate 0.1 MG TAB PO SCH (14:30)
[2022-11-10] MEDS ORDERED: Electrolyte Replacement Protocol FS PRN (14:30)
[2022-11-10 14:47] VITALS: BMI 29.9
[2022-11-10] MEDS ORDERED: VANCOMYCIN 2 GRAM/500 ML BAG 2 GM in Premix Bag 1 BAG IVPB SCH (15:00)
[2022-11-10 15:23] LABS: Troponin I Less than 0.010 ng/mL (< 0.028)
[2022-11-10] MEDS ORDERED: Hydrocortisone Sod Succ/PF 100 mg/2 ml Vial IVP SCH (16:00)
[2022-11-10] MEDS: predniSONE 20 MG TAB PO SCH (16:26)
[2022-11-10] MEDS: Insulin Regular 300 UNITS/3 ML VIAL SC PRN (16:30)
[2022-11-10] MEDS: Heparin 5,000 UNITS/ML VIAL SC SCH (21:24)
[2022-11-10] MEDS ORDERED: Insulin Glargine 30 UNITS/0.3 ML VIAL SC SCH (21:45)
[2022-11-11] MEDS: traMADol HCl 50 MG TAB PO PRN ×3 (00:19→21:47)
[2022-11-11] MEDS: Cefepime 2 GM in Sodium Chloride 0.9% 100 ML IVPB SCH ×2 (04:31→17:03)
[2022-11-11] MEDS: Acetaminophen 325 MG TAB PO PRN (04:41)
[2022-11-11 04:51] LABS: #Basophils 0.1 thou/uL (0.0-0.2); #Lymphocytes 2.5 thou/uL (1.20-3.40); #Monocytes 1.2 thou/uL (0.11-0.59); %Basophils 0.5 % (0.0-1.0); %Eosinophils 0.1 % (0.0-10.0); %Monocytes 11.5 % (0.0-10.0); %Neutrophils 64.9 % (42.0-75.0); Mean Corpuscular HGB CONC 33.7 g/dL (32.0-36.0); Mean Corpuscular Hemoglobin 31.9 pg (27.0-31.0); Mean Corpuscular Volume 94.8 fl (78.0-98.0); Mean Platelet Volume 6.5 fL (7.4-10.4); Platelet Count 201 10x3/uL (130-400); Red Blood Cell (RBC) Count 4.71 mill/uL (4.70-6.10); White Blood Cell (WBC) Count 10.7 10x3/uL (4.8-10.8)
[2022-11-11 05:18] LABS: ALT (SGPT) 18 U/L (8-55); AST (SGOT) 12 U/L (5-34); Albumin 3.8 g/dL (3.4-4.8); Alkaline Phosphatase 106 U/L (40-110); Anion Gap 11 mmol/L (10-20); BUN (Urea Nitrogen) 14 mg/dL (8.4-25.7); Bilirubin, Total 0.7 mg/dL (0.2-1.2); Calc. Creatinine Clearance 132 mL/min (70-130); Calcium 9.3 mg/dL (7.8-10.44); Carbon Dioxide 25 mmol/L (23-31); Chloride 105 mmol/L (98-107); Estimated GFR 101; Globulin 2.7 g/dL (2.4-3.5); Glucose 192 mg/dL (80-115); Magnesium 2.2 mg/dL (1.6-2.6); Potassium 4.3 mmol/L (3.5-5.1); Protein, Total 6.5 g/dL (5.8-8.1); Sodium 137 mmol/L (136-145)
[2022-11-11] MEDS ORDERED: predniSONE 5 MG TAB PO SCH (08:45)
[2022-11-11] MEDS ORDERED: traMADol HCl 50 MG TAB PO SCH ×2 (09:00→22:00)
[2022-11-11] MEDS: Heparin 5,000 UNITS/ML VIAL SC SCH ×2 (09:45→21:45)
[2022-11-11] MEDS: Metoprolol Tartrate 25 MG TAB PO SCH ×2 (09:45→21:45)
[2022-11-11] MEDS: Aspirin 81 mg Enteric Coated Tablet PO SCH (09:46)
[2022-11-11] MEDS: predniSONE 20 MG TAB PO SCH (10:04)
[2022-11-11] MEDS: Fludrocortisone Acetate 0.1 MG TAB PO SCH (11:29)
[2022-11-11] MEDS: Vancomycin 1.5 GRAM/300 ML BAG 1.5 GM in Premix Bag 1 BAG IVPB SCH ×2 (11:29→17:03)
[2022-11-11] MEDS: Insulin Regular 300 UNITS/3 ML VIAL SC PRN ×2 (11:30→17:34)
[2022-11-11] MEDS ORDERED: Methyl Salicylate/Menthol 85 GM TUBE TOP PRN ×2 (12:10→12:15)
[2022-11-11] MEDS: predniSONE 5 MG TAB PO SCH (17:03)
[2022-11-11] MEDS ORDERED: Atorvastatin Calcium 20 MG TAB PO SCH (21:00)
[2022-11-12] MEDS: Cefepime 2 GM in Sodium Chloride 0.9% 100 ML IVPB SCH ×2 (02:47→15:41)
[2022-11-12] MEDS: Acetaminophen 325 MG TAB PO PRN ×2 (02:53→10:55)
[2022-11-12 06:17] LABS: Vancomycin, Trough 14.8 ug/mL
[2022-11-12] MEDS: Vancomycin 1.5 GRAM/300 ML BAG 1.5 GM in Premix Bag 1 BAG IVPB SCH (06:38)
[2022-11-12] MEDS: Aspirin 81 mg Enteric Coated Tablet PO SCH (08:52)
[2022-11-12] MEDS: Metoprolol Tartrate 25 MG TAB PO SCH (08:52)
[2022-11-12] MEDS: Heparin 5,000 UNITS/ML VIAL SC SCH (08:52)
[2022-11-12] MEDS: predniSONE 5 MG TAB PO SCH ×2 (08:52→17:10)
[2022-11-12] MEDS: Fludrocortisone Acetate 0.1 MG TAB PO SCH (08:58)
[2022-11-12] MEDS: traMADol HCl 50 MG TAB PO PRN (15:43)
[2022-11-12 16:05] VITALS: BP 159/96; TEMP 98
== END 2022-11-12 17:55 | disposition home or self-care (01) | DRG 645 ==
LOC: ERS 10:43 → 2NO 14:22
PROVIDERS: ADMIT Internal Medicine; ATTEND Internal Medicine
DX: E27.2 Addisonian crisis (principal); E11.22 Type 2 diabetes mellitus with diabetic chronic kidney disease; E27.40 Unspecified adrenocortical insufficiency; I12.9 Hypertensive chronic kidney disease with stage 1 through stage 4 chronic kidney disease, or unspecified chronic kidney disease; H40.9 Unspecified glaucoma; R07.9 Chest pain, unspecified; S46.011A Strain of muscle(s) and tendon(s) of the rotator cuff of right shoulder, initial encounter; S46.211A Strain of muscle, fascia and tendon of other parts of biceps, right arm, initial encounter; E78.5 Hyperlipidemia, unspecified; Z86.73 Personal history of transient ischemic attack (TIA), and cerebral infarction without residual deficits; Z79.899 Other long term (current) drug therapy; Z98.890 Other specified postprocedural states; Z79.82 Long term (current) use of aspirin
CPT/HCPCS: 36415; 36416; 71045; 72141; 74177; 80053; 80202; 81003; 82533; 82550; 83036; 83605; 83690; 83735; 84145; 84484; 85025; 86140; 87040; 87086; 93005; J0692; J1644; J1815; J2405; J3370; J3475; J3490; J7512; Q9967